=== PATIENT | male | born 1955 | race Caucasian/White ===

== ENCOUNTER 2016-10-01 06:18 | Day surgery (SDC) | payer MEDICARE, OTHER ==
[2016-09-29 14:30] LABS: HEMATOCRIT 41.4 % (40.0-51.0); HEMOGLOBIN 13.6 g/dL (13.6-17.8)
[2016-09-29 14:53] LABS: BUN (BLOOD UREA NITROGEN) 11 MG/DL (6-23); CALCIUM, SERUM 8.8 MG/DL (8.5-10.4); CHLORIDE, SERUM 101 MMOL/L (96-112); CREATININE 0.82 MG/DL (0.70-1.30); GFR AFRICAN AMERICAN 111 ML/MIN (>=60); GFR NON AFRICAN AMERICAN 95 ML/MIN (>=60); GLUCOSE, SERUM 91 MG/DL (60-99); POTASSIUM, SERUM 4.5 MMOL/L (3.5-5.3); SODIUM, SERUM 139 MMOL/L (135-148)
[2016-09-29 14:54] LABS: CO2 (CARBON DIOXIDE) 30 MMOL/L (24-34)
--- NOTE | ~2016-10-01 | OP ---
Record Of Operation [facility] [address] [place]. [address] NAME: LOUIS GARCIA : 55 [place] [facility] [place] [id number] AGE: 61 ADM/REG DATE : 10/01/16 MR#: [id number] REPORT SERV DATE: 10/01/16 DICTATED BY: TOR GRIFFIN DATE: 10/01/16 REPORT STATUS : Draft TRANSCRIBED BY: MODL DATE: 10/01/16 DATE OF PROCEDURE: 10/01/2016 PREOPERATIVE DIAGNOSIS: Partially obstructing glottic tumor. 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 PROCEDURE PERFORMED: Direct laryngoscopy with tumor debulking. SURGEON: Tor Griffin M.D. TOLL RELIEF OPERATOR: None. ANESTHESIA: General. COMPLICATIONS: None. CONDITION: Stable to recovery. INDICATIONS: A 61-year-old male, with persistent hoarseness, and left otalgia, a long-time smoker, and tumor noted in the left glottic region, and flexible laryngoscopy. Risks benefits, and alternatives to exam under anesthesia, and biopsy were explained, and he agreed. PROCEDURE IN DETAIL: The patient was identified in preoperative holding, taken back to the operating room, and placed supine on the operating room table. General anesthesia was established. He was intubated with a #6 endotracheal tube. Initially, a free MAC was used and ultimately, I requested a #4 Hartman blade and was able to intubate the patient myself with a #6 endotracheal tube. He was then prepped and draped in a standard fashion for the operation. A time-out was called. The patient and procedure were confirmed. Direct laryngoscopy revealed an exophytic glottic tumor in a horse shoe fashion involving the glottic larynx more so on the left than the right involving the left false and true vocal folds. The left true vocal fold could not be distinguished from exophytic tumor. This extended around the anterior commissure to the right glottic and subglottic region. I could distinguish a right true vocal fold, but there was exophytic tumor just inferior to this. The subglottic extent was clearly more involved on the left side. I measured the distance from the true cord to the furthest extent and this was 2 cm. It did not reach the midline posteriorly or anteriorly, and photos were taken. Multiple biopsies were taken and the area was debulked. Afrin-soaked pledgets were used for hemostasis. At the end of the case, the patient was extubated and taken to recovery in stable condition. There were no complications. I used a combination of straight and up- biting cup forceps to debulk the tumor during the case. Record Of Operation [address] [place]. [address] NAME: LOUIS GARCIA : 55 [place] : [place] [facility] [place] [id number] AGE: 61 ADM/REG DATE : 10/01/16 MR#: [id number] REPORT SERV DATE: 10/01/16 DICTATED BY: TOR GRIFFIN DATE: 10/01/16 REPORT STATUS : Draft TRANSCRIBED BY: BRIANA DATE: 10/01/16 PH/BRIANA Tor Griffin M.D. / [id number] CC: Tod Chin DO
[~2016-10-01 06:18] MED LIST: ASAB PO; FLONASE NAS; LIPITOR40 PO; LISINOPRIL40 MG PO; MIRALAXPKT PO; NEUR600 PO; NORCO1 TA1 PO; SYMBICORT 160/41 INH INH; VENTOLIN HFA INH; VITAMIN D2000 UNIT PO
== END 2016-10-01 11:41 | disposition home or self-care (01) ==
LOC: SDC 06:18
PROVIDERS: Specialist
PROC: 0CBS8ZX Excision of Larynx, Via Natural or Artificial Opening Endoscopic, Diagnostic (ICD-10-PCS; principal; 2016-10-01 07:15)
DX: C32.0 Malignant neoplasm of glottis (principal); C32.2 Malignant neoplasm of subglottis; F17.210 Nicotine dependence, cigarettes, uncomplicated; J44.9 Chronic obstructive pulmonary disease, unspecified; M19.90 Unspecified osteoarthritis, unspecified site; K21.9 Gastro-esophageal reflux disease without esophagitis; F32.9 Major depressive disorder, single episode, unspecified; Z79.899 Other long term (current) drug therapy; Z98.41 Cataract extraction status, right eye; Z98.42 Cataract extraction status, left eye; Z98.890 Other specified postprocedural states
CPT/HCPCS: 80048; 85014; 85018; 88305; 88331; 88342; 93005; 94640; A9270-GY; J2250; J2405; J3010

== ENCOUNTER 2016-10-03 22:07 | Emergency (ER) | payer MEDICARE, OTHER ==
[2016-10-03 19:52] LABS: BASOPHILS 0.6 %; BASOPHILS ABSOLUTE 0.06 10/3/uL (0.0-0.16); EOSINOPHILS 1.4 %; EOSINOPHILS ABSOLUTE 0.15 10/3/uL (0.0-0.53); HEMOGLOBIN 13.9 g/dL (13.6-17.8); IMMATURE GRANULOCYTES 0.2 %; IMMATURE GRANULOCYTES ABSOLUTE 0.02 10/3/uL (0.0-0.11); LYMPHOCYTES 44.2 %; LYMPHOCYTES ABSOLUTE 4.59 10/3/uL (0.67-4.30); MANUAL DIFF NO %; MEAN CORPUS HGB CONC 33.9 g/dL (32.0-36.0); MEAN CORPUSCULAR HEMOGLOB 31.9 pg (26.0-34.0); MONOCYTES 7.9 %; MONOCYTES ABSOLUTE 0.82 10/3/uL (0.21-1.20); NEUTROPHILS 45.7 %; NEUTROPHILS ABSOLUTE 4.74 10/3/uL (2.02-8.40); PLATELET COUNT 194 10/3/uL (150-400); RBC DISTRIBUTION WIDTH 12.9 % (12.0-16.0); RED CELL COUNT 4.36 10/6/uL (4.7-6.1); WHITE BLOOD CELLS 10.4 10/3/uL (4.5-10.5)
[2016-10-03 20:05] LABS: INTERNATIONAL NORMAL RATI 0.9 UNITS (-); PARTIAL THROMBO TIME 23.4 SEC (22.5-37.2); PROTIME (NOT ORD) 12.4 SEC (12.0-14.5)
[2016-10-03 20:12] LABS: ALBUMIN 3.4 G/DL (3.5-5.0); BUN (BLOOD UREA NITROGEN) 13 MG/DL (6-23); CALCIUM, SERUM 8.4 MG/DL (8.5-10.4); CHEST PAIN PROFILE TAT 0 Hrs 24 Mins; CHLORIDE, SERUM 102 MMOL/L (96-112); CO2 (CARBON DIOXIDE) 31 MMOL/L (24-34); CREATININE 0.86 MG/DL (0.70-1.30); GFR AFRICAN AMERICAN 108 ML/MIN (>=60); GFR NON AFRICAN AMERICAN 94 ML/MIN (>=60); GLUCOSE, SERUM 87 MG/DL (60-99); POTASSIUM, SERUM 4.1 MMOL/L (3.5-5.3); SGPT(ALT) 18 U/L (5-65); SODIUM, SERUM 141 MMOL/L (135-148); TOTAL BILIRUBIN 0.4 MG/DL (0-1.2); TOTAL PROTEIN 6.9 G/DL (6.0-8.5); TROPONIN I <0.02 NG/ML (<0.05)
[2016-10-03 20:13] LABS: ALKALINE PHOSPHATASE 81 U/L (45-117); DIRECT BILIRUBIN < 0.1 MG/DL (0.0-0.4); INDIRECT BILIRUBIN(NOT ORDER) 0.3 MG/DL (0.1-0.9); SGOT(AST) 16 U/L (5-40)
[2016-10-03 20:27] LABS: ASCORBIC ACID (UR NOT ORDER) NEG (NEG); BILIRUBIN, URINE NEGATIVE (NEG); ER URINALYSIS TAT 0 Hrs 00 Mins; KETONE, URINE NEGATIVE (NEG); LEUKOCYTE ESTERASE(NOT OR NEG (NEG); NITRITE (URINE) NEG (NEG); WBC (NOT ORDERED) (RFLEX) 0 (0-5)
[2016-10-03 20:51] LABS: CPK 66 U/L (0-200)
== END 2016-10-03 23:35 | disposition home or self-care (01) ==
LOC: ER 22:07
PROVIDERS: Nurse Practitioner Acute Care
DX: R52 Pain, unspecified (principal); Z87.891 Personal history of nicotine dependence; F32.9 Major depressive disorder, single episode, unspecified; K21.9 Gastro-esophageal reflux disease without esophagitis; I10 Essential (primary) hypertension; J44.9 Chronic obstructive pulmonary disease, unspecified; Z79.899 Other long term (current) drug therapy
CPT/HCPCS: 71010; 80048; 80076; 81001; 82550; 83605; 83735; 84484; 85025; 85610; 85730; 93005; 99285